=== PATIENT | female | born 1965 | race Caucasian/White ===

== ENCOUNTER 2017-07-30 17:43 | Emergency (ER) | payer BC ==
[~2017-07-30] VITALS: Ht 170.2 cm; Wt 67.1 kg
[2017-07-30] MEDS ORDERED: DULO60CA45 PO (18:10)
[2017-07-30] MEDS ORDERED: GABAPENTIN PO (18:10)
[2017-07-30] MEDS ORDERED: BUPR300T52 PO (18:10)
[2017-07-30] MEDS ORDERED: VENL150C2 PO (18:10)
[2017-07-30] MEDS ORDERED: LORAZEPAM 2 MG/1 ML VIAL IM ONE (18:15)
[2017-07-30 18:19] LABS: BASOPHILS % (AUTO) 0.1 % (0.0-2.0); EOSINOPHILS % (AUTO) 0.6 % (0.0-7.0); HEMATOCRIT 30.7 % (31.2-41.9); HEMOGLOBIN 9.5 g/dL (10.9-14.3); LYMPHOCYTES # (AUTO) 0.9 K/uL (20.0-40.0); MEAN CORPUSCULAR HEMOGLOBIN 20.8 uug (24.7-32.8); MEAN CORPUSCULAR HGB CONC 31 g/dL (32.3-35.6); MONOCYTES # (AUTO) 0.2 K/uL (2.0-10.0); MONOCYTES % (AUTO) 3.1 % (0.0-11.0); NEUTROPHILS # (AUTO) 5.2 K/uL (1.8-8.9); NEUTROPHILS % (AUTO) 82.2 % (38.5-71.5); PLATELET COUNT (AUTO) 395 K/uL (179-408); RED BLOOD CELL COUNT(AUTO) 4.58 MIL/uL (3.63-4.92); WHITE BLOOD COUNT (AUTO) 6.3 K/uL (3.8-11.8)
[2017-07-30] MEDS ORDERED: ONDANSETRON ODT 4 MG TAB.RAPDIS ONE ×2 (18:24→19:52)
[2017-07-30] MEDS ORDERED: LORAZEPAM 2 MG/1 ML VIAL ONE (18:24)
[2017-07-30] MEDS ORDERED: ONDANSETRON 4 MG/2 ML VIAL ONE (18:29)
[2017-07-30] MEDS ORDERED: ONDANSETRON 4 MG/2 ML VIAL IM ONE (18:30)
[2017-07-30 18:33] LABS: ALANINE AMINOTRANSFERASE 28 U/L (14-59); ALKALINE PHOSPHATASE 76 U/L (50-136); ASPARTATE AMINOTRANSFERASE 13 U/L (15-37); BILIRUBIN,DIRECT 0.1 mg/dL (0.0-0.2); BILIRUBIN,TOTAL 0.4 mg/dL (0.2-1.0); CARBON DIOXIDE 28 mmol/L (21-32); CHLORIDE 102 mmol/L (98-107); CREATININE 0.8 mg/dL (0.6-1.3); GLUCOSE 112 mg/dL (74-106); POTASSIUM 4.5 mmol/L (3.5-5.1); UREA NITROGEN, BLOOD 6 mg/dL (7-18)
[2017-07-30 18:46] LABS: *BILIRUBIN,URIN NEGATIVE (NEGATIVE); *BLOOD, URINE NEGATIVE (NEGATIVE); *CLARITY,URINE CLEAR (CLEAR); *COLOR,URINE YELLOW (YELLOW); *KETONES,URINE 1+ (NEGATIVE); *PROTEIN,URINE NEGATIVE (NEGATIVE); *UROBILINOGEN,URINE 0.2 E.U./dl (NORMAL); LEUKOCYTE ESTERASE ,URINE NEGATIVE (NEGATIVE); NITRITE, URINE NEGATIVE (NEGATIVE); PH,URINE 8.5 (5.0-8.0); UGLUCOSE NEGATIVE (NEGATIVE)
[2017-07-30 18:55] LABS: ACETAMINOPHEN < 2.0 ug/mL (10-30); ETHANOL < 3 MG/DL (0-0)
--- NOTE | 2017-07-30 19:00 | NUR ---
CALLED [facility] TO FOLLOW UP ON THE PT STATUS. [facility] WILL CALL BACK WITH MORE INFO
[2017-07-30 19:05] LABS: *AMPHETAMINE, URINE NEGATIVE (NEGATIVE); *BARBITURATE, URINE NEGATIVE (NEGATIVE); *CANNABINOID, URINE NEGATIVE (NEGATIVE); *COCCAINE, URINE NEGATIVE (NEGATIVE); *OPIATE, URINE POSITIVE (NEGATIVE); *PHENCYCLIDINE SCREEN,URINE NEGATIVE (NEGATIVE)
[2017-07-30] MEDS ORDERED: diphenhydrAMINE 25 MG CAP PO ONE (19:15)
[2017-07-30] MEDS ORDERED: diphenhydrAMINE 50 MG CAPSULE ONE (19:19)
--- NOTE | 2017-07-30 19:37 | NUR ---
Pt states still nauseous, no vomiting, and still very jittery.
[2017-07-30] MEDS ORDERED: CLONIDINE HCL 0.1 MG TABLET PO ONE (19:45)
[2017-07-30] MEDS ORDERED: ONDANSETRON ODT 4 MG TAB.RAPDIS SL ONE (19:45)
[2017-07-30 19:51] LABS: BACTERIA,URINE NONE SEEN /HPF (NONE SEEN); RBC,URINE 0-3 /HPF (0-3); SQUAMOUS EPITHELIAL CELL,UR FEW /HPF (NONE SEEN); WBC,URINE 0-3 /HPF (0-3)
[2017-07-30] MEDS ORDERED: CLONIDINE HCL 0.1 MG TABLET ONE (19:52)
[2017-07-30 19:53] VITALS: BP 147/95
--- NOTE | 2017-07-30 20:46 | NUR ---
REPAGED EPPIC PANEL. WAITING FOR DR CHEN TO CALL BACK
--- NOTE | 2017-07-30 20:50 | NUR ---
Dr. Ballard on panel call with Dr. Arpan Martin.
--- NOTE | 2017-07-30 21:55 | NUR ---
Passed report to [facility].
[2017-07-30] MEDS ORDERED: CLONIDINE HCL 0.1 MG TABLET PO PRN (22:15)
[2017-07-30] MEDS ORDERED: ONDANSETRON 4 MG/2 ML VIAL IV PRN (22:15)
[2017-07-30] MEDS ORDERED: HYDROXYZINE PAMOATE 25 MG CAPSULE PO PRN (22:15)
[2017-07-30] MEDS ORDERED: ACETAMINOPHEN 325 MG TABLET PO PRN (22:15)
[2017-07-30] MEDS ORDERED: LORAZEPAM 2 MG/1 ML VIAL IV PRN (22:15)
--- NOTE | 2017-07-30 23:00 | NUR ---
Brought in from Emergency room Telemetry status. Severe anxiousness noted, restless & unable to keep still. Supposed to give Ativan IV but patient has no IV line. Attempted to start peripheral line but unsuccessful, patient is hard stick. Called ER staff to start an IV.
--- NOTE | 2017-07-30 23:30 | NUR ---
Nurse Terrence (ER staff) Inserted Heplock on her right AC -[id number]. Ativan 1mg IVP adm.
[2017-07-31] MEDS ORDERED: TRAZ-214 PO (00:03)
[2017-07-31] MEDS ORDERED: ONDA4TAB10 PO (00:03)
[2017-07-31] MEDS ORDERED: VENL37.515 PO (00:03)
[2017-07-31] MEDS ORDERED: GABA600T2 PO (00:14)
[2017-07-31] MEDS ORDERED: BUPR300T52 PO (00:14)
[2017-07-31] MEDS ORDERED: diphenhydrAMINE 25 MG CAP PO PRN (00:30)
[2017-07-31] MEDS ORDERED: ONDANSETRON HCL 4 MG TABLET PO SCH (00:30)
--- NOTE | 2017-07-31 00:35 | NUR ---
Home meds reported to Valerie Soriano NP. Patient stated she takes Neurontin at bedtime, Benadryl 4 tablets (unknown dose) at home PRN, & Toradol (unknown dose) for back pain. [employer] SECURITY CONSULTANT aware. Patient still anxious, walking in & out in her room. Instructed to stay in room/bed, but patient refused.
--- NOTE | 2017-07-31 00:42 | NUR ---
Right AC IV line out, patient stated it was accidentally removed while brushing her teeth.
[2017-07-31] MEDS ORDERED: GABAPENTIN 300 MG CAPSULE PO SCH (00:45)
--- NOTE | 2017-07-31 01:30 | NUR ---
Routine night meds was given. Still anxious, wants to leave AMA. Patient stated the hospital is not equipped to handle her case. [employer] Cleaning Checker & EPIC director of infection control MD notified (Valerie Soriano NP).
--- NOTE | 2017-07-31 02:00 | NUR ---
Patient left the hospital AMA. Signed form inserted in chart.
[2017-07-31] MEDS ORDERED: PANTOPRAZOLE SODIUM 40 MG TABLET.DR PO SCH (07:00)
[2017-07-31] MEDS ORDERED: buPROPion XL 150 MG TAB.SR.24H PO SCH (09:00)
[2017-07-31] MEDS ORDERED: VENLAFAXINE XR 150 MG CAP.SR.24H PO SCH (09:00)
[2017-07-31] MEDS ORDERED: DULOXETINE 60 MG CAPSULE.DR PO SCH (09:00)
== END 2017-07-30 22:45 | disposition other institution (70) ==
LOC: ER 17:46 → TELE 22:22 → UNDOADMIN 22:22 → UNDODISIN 07-31 02:25
DX: F11.23 Opioid dependence with withdrawal (principal); F41.9 Anxiety disorder, unspecified; F32.9 Major depressive disorder, single episode, unspecified; Z79.899 Other long term (current) drug therapy
CPT/HCPCS: 36415; 71045; 80307; 84703; 85025; A4663; G0480; G0480-TC; J2060; J2405; Q0162; Q0163